=== PATIENT | female | born 1940 | race Caucasian/White ===

== ENCOUNTER 2016-08-11 19:16 | Observation (INO) | payer OTHER ==
--- NOTE | 2016-08-11 20:25 | RAD ---
Chest PA and lateral Indication: Pneumonia. Dyspnea. Comparison: June 27, 2015 radiograph Findings: No large pneumothorax seen. There is cardiomegaly, hiatal hernia and lung hyperinflation. Peribronchial thickening noted. No consolidation seen. Impression: Cardiomegaly and COPD change. Bronchitis may be present. No large pneumothorax seen. Reported By:
--- NOTE | 2016-08-11 20:34 | DR.GENAD ---
HPI - PCP Primary Care Physician: IDALIA - HPI Comment HPI Comment: She has been coughing for the past month and finished a round of levaquin two weeks ago with little improvement; she has been worsening over the past few days and has developed a temp; she feels bad all over and is tired all the time; her head hurts but she denies cp/palpitations/ear pain or sore throat. She continues to use her oxygen at night but has not been using her neb tx. - Complaint/Symptoms Chief Complaint:: FEVER ,SICK,COUGH - Source History Provided: Patient - Mode of Arrival Mode of Arrival: Ambulatory - Timing Onset of Chief Complaint: 08/04/16 PMH - PMH Past Medical History: Yes Past Medical History: Arthritis, Diabetes Past Medical History Comment: TIRSO, PULMONARY FIBROSIS Past Surgical History: Yes Surgical History: , Cholecystectomy, Hysterectomy, Ortho Surgery, Tonsillectomy - Family History History of Family Medical Conditions: Yes Family Medical History: Cancer - Social History Does patient currently use any type of tobacco product: No Have you used tobacco products in the last 12 months: No Type of Tobacco Use: None Does any household member use tobacco: No Alcohol Use: None Do you use any recreational Drugs:: No Lives With: Spouse Lives Where: Home - infectious screening In the last 2 months have you had wt loss of >10#?: NO Have you had fever, night sweats or hemotysis?: No Have you traveled outside the country in the last 6 months?: No Isolation: Standard ROS - Review of Systems Constitutional: Fever, Malaise, Weakness Eyes: No Symptoms Reported ENTM: Nose Congestion Respiratoy: See HPI Cardiovascular: No Symptoms Reported Gastrointestinal/Abdominal: No Symptoms Reported Neurological: No Symptoms Reported Musculoskeletal: Joint Pain PE - Vital Signs Vitals: Temperature 102.9 F Pulse Rate 90 Respiratory Rate 20 Blood Pressure [Right Arm] 183/75 Blood Pressure 104/56 O2 Sat by Pulse Oximetry 90 - General Limitations: No Limitations General Appearance: Alert (moderately ill appearing) - Head Head Exam: Normal Inspection - ENT ENT Exam: Mucous Membranes Dry - Neck Neck Exam: Normal Inspection, Full ROM - Chest Chest Inspection: Normal Inspection - Respiratory Respiratory Exam: Bilateral Wheezing, Left Rales, Lower Rales - Cardiovascular Cardiovascular Exam: Regular Rate, Normal Rhythm - Abdominal Exam Abdominal Exam: Normal Inspection - Neurologic Neurological Exam: Alert - Psychiatric Psychiatric Exam: Anxious ROR - Labs Reviewed Result Diagrams: 08/11/16 20:00 08/11/16 20:00 Laboratory: 08/11/16 20:26 Sputum - Expectorated Sputum - Final WBC 4.8 X10^3/uL (3.6-10.0) 08/11/16 20:00 RBC 3.76 X10^6/uL (3.5-5.4) 08/11/16 20:00 Hgb 11.3 g/dL (12.0-16.0) L 08/11/16 20:00 Hct 34.0 % (36.0-47.0) L 08/11/16 20:00 MCV 90.5 fL (80.0-100.0) 08/11/16 20:00 MCH 30.0 pg (27.0-34.0) 08/11/16 20:00 MCHC 33.1 g/dL (33.0-35.0) 08/11/16 20:00 RDW 14.8 % (11.6-16.5) 08/11/16 20:00 Plt Count 93 X10^3/uL (150.0-450.0) L 08/11/16 20:00 MPV 9.5 fL (7.4-11.0) 08/11/16 20:00 Neut % 74.6 % (42.0-75.0) 08/11/16 20:00 Lymph % 11.2 % (21.0-51.0) L 08/11/16 20:00 Delta % 12.8 % (0.0-13.0) 08/11/16 20:00 Eos % 0.9 % (0.9-2.9) 08/11/16 20:00 Baso % 0.5 % (0.2-1.0) 08/11/16 20:00 Neut # 3.6 x10^3/uL (2.2-4.8) 08/11/16 20:00 Lymph # 0.5 X10^3/uL (1.3-2.9) L 08/11/16 20:00 Delta # 0.6 x10^3/uL (0.3-0.8) 08/11/16 20:00 Eos # 0.0 x10^3/uL (0.0-0.2) 08/11/16 20:00 Baso # 0.0 X10^3/uL (0.0-0.1) 08/11/16 20:00 Absolute Nucleated RBC 0.1 /100WBC 08/11/16 20:00 Sodium 140 mmol/L (136-145) 08/11/16 20:00 Corrected Sodium 142 mmol/L (136-145) 08/11/16 20:00 Potassium 3.4 mmol/L (3.5-5.1) L 08/11/16 20:00 Chloride 105 mmol/L (98-107) 08/11/16 20:00 Carbon Dioxide 26.2 mmol/L (21-32) 08/11/16 20:00 BUN 19 mg/dL (7-18) H 08/11/16 20:00 Creatinine 0.95 mg/dL (0.55-1.02) 08/11/16 20:00 Est GFR (MDRD) Af Amer > 60 (>60) 08/11/16 20:00 Est GFR (MDRD) Non-Af > 60 (>60) 08/11/16 20:00 Glucose 201 mg/dL (65-99) H 08/11/16 20:00 Calcium 7.7 mg/dL (8.5-10.1) L 08/11/16 20:00 Corrected Calcium 8.7 mg/dL (8.5-10.1) 08/11/16 20:00 Total Bilirubin 0.40 mg/dL (0.2-1.0) 08/11/16 20:00 AST 23 Units/L (15-37) 08/11/16 20:00 ALT 15 Units/L (12-78) 08/11/16 20:00 Alkaline Phosphatase 87 Units/L (46-116) 08/11/16 20:00 Total Protein 6.5 g/dL (6.4-8.2) 08/11/16 20:00 Albumin 2.8 g/dL (3.4-5.0) L 08/11/16 20:00 Globulin 3.7 g/dL (2.5-4.5) 08/11/16 20:00 Albumin/Globulin Ratio 0.8 Ratio (1.1-2.1) L 08/11/16 20:00 - XRAY XRAY Interpreted by: Radiologist (bronchitis) - Diagnosis Discharge Problem: Pulmonary hypertension, Bronchitis, Hypokalemia - Discharge Plan Disposition: ADMITTED INPATIENT Condition: Stable - Follow ups/Referrals - Instructions
[2016-08-11 20:47] LABS: ALANINE AMINOTRANSFERASE 15 Units/L (12-78); ALBUMIN 2.8 g/dL (3.4-5.0); ALKALINE PHOSPHATASE 87 Units/L (46-116); ASPARTATE AMINO TRANSFERASE 23 Units/L (15-37); BLOOD UREA NITROGEN 19 mg/dL (7-18); CALCIUM 7.7 mg/dL (8.5-10.1); CARBON DIOXIDE 26.2 mmol/L (21-32); CHLORIDE 105 mmol/L (98-107); COR CA(FOR HYPOALB) 8.7 mg/dL (8.5-10.1); COR NA(FOR HYPERGLY) 142 mmol/L (136-145); CREATININE 0.95 mg/dL (0.55-1.02); GLUCOSE 201 mg/dL (65-99); SODIUM 140 mmol/L (136-145); TOTAL PROTEIN 6.5 g/dL (6.4-8.2); eGFR BLACK RACES > 60 (>60); eGFR NON BLACK RACES > 60 (>60)
[2016-08-11 20:55] LABS: BASOPHILS % (AUTO) 0.5 % (0.2-1.0); EOSINOPHILS % (AUTO) 0.9 % (0.9-2.9); HEMOGLOBIN 11.3 g/dL (12.0-16.0); LYMPHOCYTES # (AUTO) 0.5 X10^3/uL (1.3-2.9); LYMPHOCYTES % (AUTO) 11.2 % (21.0-51.0); MEAN CORPUSCULAR HGB CONC 33.1 g/dL (33.0-35.0); MEAN CORPUSCULAR VOLUME 90.5 fL (80.0-100.0); MEAN PLATELET VOLUME 9.5 fL (7.4-11.0); MONOCYTES # (AUTO) 0.6 x10^3/uL (0.3-0.8); MONOCYTES % (AUTO) 12.8 % (0.0-13.0); NEUTROPHILS # (AUTO) 3.6 x10^3/uL (2.2-4.8); NEUTROPHILS % (AUTO) 74.6 % (42.0-75.0); PLATELET COUNT 93 X10^3/uL (150.0-450.0); RED BLOOD COUNT 3.76 X10^6/uL (3.5-5.4); RED CELL DISTRIBUTION WIDTH 14.8 % (11.6-16.5); WHITE BLOOD COUNT 4.8 X10^3/uL (3.6-10.0)
[2016-08-11] MEDS ORDERED: DUONEB 0.5 MG/3 MG NEB ONE (21:09)
[2016-08-11] MEDS ORDERED: DUONEB 0.5 MG/3 MG ONE (21:47)
[2016-08-11] MEDS ORDERED: TYLENOL 325 MG TAB PO PRN (22:33)
[2016-08-12] MEDS: NS 1000 ML 1,000 ML IV SCH ×3 (00:57→19:25)
[2016-08-12] MEDS: ZITHROMAX INJ 500 MG VIAL 500 MG in NS 250 ML IV 250 ML IV SCH (01:00)
[2016-08-12 01:09] VITALS: BMI 25.6
[2016-08-12] MEDS ORDERED: NS 50 ML IV + SPIKE MINIBAG* 50 ML IV ONE (01:14)
[2016-08-12] MEDS ORDERED: NS 250 ML IV 250 ML IV ONE (01:14)
[2016-08-12] MEDS ORDERED: ROCEPHIN VIAL 1 GM ONE (01:14)
[2016-08-12] MEDS ORDERED: ZITHROMAX INJ 500 MG VIAL IV ONE (01:15)
[2016-08-12] MEDS: ROCEPHIN VIAL 1 GM 1 GM in NS 50 ML IV + SPIKE MINIBAG* 50 ML IV SCH ×2 (01:26→09:56)
[2016-08-12 05:25] LABS: ALANINE AMINOTRANSFERASE 17 Units/L (12-78); ALBUMIN 2.9 g/dL (3.4-5.0); ALKALINE PHOSPHATASE 88 Units/L (46-116); ASPARTATE AMINO TRANSFERASE 29 Units/L (15-37); BLOOD UREA NITROGEN 18 mg/dL (7-18); CALCIUM 8.2 mg/dL (8.5-10.1); CHLORIDE 107 mmol/L (98-107); COR CA(FOR HYPOALB) 9.1 mg/dL (8.5-10.1); COR NA(FOR HYPERGLY) 146 mmol/L (136-145); CREATININE 0.79 mg/dL (0.55-1.02); GLUCOSE 215 mg/dL (65-99); SODIUM 143 mmol/L (136-145); TOTAL PROTEIN 6.8 g/dL (6.4-8.2); eGFR BLACK RACES > 60 (>60); eGFR NON BLACK RACES > 60 (>60)
[2016-08-12 06:30] LABS: BASOPHILS % (AUTO) 0.3 % (0.2-1.0); EOSINOPHILS % (AUTO) 0.3 % (0.9-2.9); HEMOGLOBIN 11.9 g/dL (12.0-16.0); LYMPHOCYTES # (AUTO) 0.7 X10^3/uL (1.3-2.9); LYMPHOCYTES % (AUTO) 13.1 % (21.0-51.0); MEAN CORPUSCULAR HEMOGLOBIN 29.9 pg (27.0-34.0); MEAN CORPUSCULAR HGB CONC 33.1 g/dL (33.0-35.0); MEAN CORPUSCULAR VOLUME 90.3 fL (80.0-100.0); MEAN PLATELET VOLUME 9.3 fL (7.4-11.0); MONOCYTES # (AUTO) 0.7 x10^3/uL (0.3-0.8); MONOCYTES % (AUTO) 13.8 % (0.0-13.0); NEUTROPHILS # (AUTO) 3.9 x10^3/uL (2.2-4.8); NEUTROPHILS % (AUTO) 72.5 % (42.0-75.0); PLATELET COUNT 91 X10^3/uL (150.0-450.0); RED BLOOD COUNT 3.98 X10^6/uL (3.5-5.4); RED CELL DISTRIBUTION WIDTH 15.4 % (11.6-16.5); WHITE BLOOD COUNT 5.3 X10^3/uL (3.6-10.0)
[2016-08-12] MEDS: DUONEB 0.5 MG/3 MG NEB PRN ×2 (09:25→20:35)
[2016-08-12] MEDS: IMURAN PO SCH (09:55)
[2016-08-12] MEDS: MICRO K EXTEN CAP 10 MEQ PO SCH (09:57)
[2016-08-12] MEDS: PROTONIX TAB 40 MG PO SCH (09:58)
[2016-08-12] MEDS: DITROPAN TAB 5 MG PO SCH (09:58)
[2016-08-12] MEDS: TAMIFLU PO SCH ×2 (09:58→21:09)
[2016-08-12] MEDS: LYRICA CAP 150 MG PO SCH ×2 (09:58→21:09)
--- NOTE | 2016-08-12 16:40 | DR.H&P ---
H&P - History & Physical for Day of: H&P Date: 08/12/16 - Chief Complaint Chief Complaint: FEVER, COUGH, WEAKNESS - Allergies Allergies/Adverse Reactions: Allergies Allergy/AdvReac Type Severity Reaction Status Date / Time No Known Drug Allergy Allergy Verified 06/27/15 16:07 - History of Present Illness History of Present Illness: ER ADMISSION WITH COPD WITH AB AND FLU B +. WILL ADMIT FOR IV ATBX, RESP THERAPY, AND IV HYDRATION. WILL RESUME HOME MEDS - Past Medical History Past Medical History: Arthritis, Diabetes - Past Surgical History Surgical History: , Cholecystectomy, Hysterectomy, Ortho Surgery, Tonsillectomy - Family History Family Medical History: Cancer - Social History Does patient currently use any type of tobacco product: No Have you used tobacco products in the last 12 months: No Type of Tobacco Use: None Does any household member use tobacco: No Alcohol Use: None Drug Use: None - Medications Home Medications: Azathioprine [Imuran] 50 mg PO DAILY 08/11/16 [History Confirmed 08/11/16] - Review of Systems Constitutional: Fever, Chills, Weakness Eyes: No Symptoms Reported ENT: No Symptoms Reported Respiratory: Cough, Shortness of Breath, Sputum, Wheezing Cardiovascular: No Symptoms Reported Gastrointestinal: Nausea Genitourinary: No Symptoms Reported Musculoskeletal: No Symptoms Reported Skin: No Symptoms Reported Neurological: No Symptoms Reported - Physical Exam Vital Signs: Temperature 98 F Pulse Rate [Left Radial] 74 Pulse Rate 85 Respiratory Rate 18 Blood Pressure [Left Arm] 110/56 Blood Pressure [Right Arm] 123/62 O2 Sat by Pulse Oximetry 95 Oriented: Normal Eyes: Normal Ear: Normal Nose: Normal Throat: Red, Dry Respiratory: Wheezes Throughout Cardiovascular: Normal : Normal Auscultation: Bowel Sounds: Normal Palpation: Normal Tenderness: Normal Skin: Normal Psychiatric: Anxiety Speech Pattern: Clear, Appropriate - Assessment/Plan (1) Bronchitis Status: Acute Plan: ADMIT, IV ATBX THERAPY, IV HYDRATION. RESP THERAPY, REPEAT AM LABS,. RESUME HOME MEDS, PAIN AND NAUSEA CONTROL (2) Hypokalemia Status: Acute (3) Influenza Status: Acute Plan: FEVER CONTROL, RESP THERAPY. IV HYDRATION
[2016-08-12] MEDS ORDERED: SNACK - Diabetic Appropriate PO SCH (20:00)
[2016-08-12] MEDS ORDERED: LIPITOR TAB 10 MG PO SCH (21:00)
[2016-08-12] MEDS ORDERED: LANTUS SC SCH (21:00)
[2016-08-13] MEDS: ZITHROMAX INJ 500 MG VIAL 500 MG in NS 250 ML IV 250 ML IV SCH (00:18)
[2016-08-13] MEDS: NS 1000 ML 1,000 ML IV SCH (04:01)
[2016-08-13 05:31] LABS: ALANINE AMINOTRANSFERASE 16 Units/L (12-78); ALBUMIN 2.3 g/dL (3.4-5.0); ALKALINE PHOSPHATASE 76 Units/L (46-116); ASPARTATE AMINO TRANSFERASE 18 Units/L (15-37); BLOOD UREA NITROGEN 8 mg/dL (7-18); CALCIUM 7.7 mg/dL (8.5-10.1); CHLORIDE 111 mmol/L (98-107); COR CA(FOR HYPOALB) 9.1 mg/dL (8.5-10.1); COR NA(FOR HYPERGLY) 146 mmol/L (136-145); CREATININE 0.54 mg/dL (0.55-1.02); GLUCOSE 221 mg/dL (65-99); SODIUM 143 mmol/L (136-145); TOTAL PROTEIN 5.9 g/dL (6.4-8.2); eGFR BLACK RACES > 60 (>60); eGFR NON BLACK RACES > 60 (>60)
[2016-08-13 05:37] LABS: BASOPHILS % (AUTO) 0.4 % (0.2-1.0); EOSINOPHILS # (AUTO) 0.1 x10^3/uL (0.0-0.2); EOSINOPHILS % (AUTO) 1.4 % (0.9-2.9); HEMATOCRIT 32.7 % (36.0-47.0); HEMOGLOBIN 10.6 g/dL (12.0-16.0); LYMPHOCYTES # (AUTO) 0.9 X10^3/uL (1.3-2.9); LYMPHOCYTES % (AUTO) 22.8 % (21.0-51.0); MEAN CORPUSCULAR HEMOGLOBIN 29.6 pg (27.0-34.0); MEAN CORPUSCULAR HGB CONC 32.5 g/dL (33.0-35.0); MEAN CORPUSCULAR VOLUME 91.1 fL (80.0-100.0); MEAN PLATELET VOLUME 9.3 fL (7.4-11.0); MONOCYTES # (AUTO) 0.5 x10^3/uL (0.3-0.8); NEUTROPHILS # (AUTO) 2.5 x10^3/uL (2.2-4.8); NEUTROPHILS % (AUTO) 62.4 % (42.0-75.0); PLATELET COUNT 100 X10^3/uL (150.0-450.0); RED BLOOD COUNT 3.59 X10^6/uL (3.5-5.4); RED CELL DISTRIBUTION WIDTH 14.7 % (11.6-16.5); WHITE BLOOD COUNT 4.1 X10^3/uL (3.6-10.0)
--- NOTE | 2016-08-13 08:18 | PCM.PROG ---
Progress Note - Progress Note for Day of Date: 08/12/16 - Subjective Subjective: low grade fever, cough and wheezing - Past Medical Family Social History Past Med/Fam/Surg Hx: No changes since H&P Allergies: Allergies No Known Drug Allergy Allergy (Verified 06/27/15 16:07) - Review of Systems ROS: No change since H&P - Vital Signs and I&O's Vital Signs: Temperature 97.8 F Pulse Rate [Left Radial] 73 Pulse Rate 80 Respiratory Rate 20 Blood Pressure [Left Arm] 111/54 Blood Pressure [Right Arm] 122/58 O2 Sat by Pulse Oximetry 92 Intake and Output: Intake & Output 08/10/16 08/11/16 08/12/16 08/13/16 11:59 11:59 11:59 11:59 Intake Total 0 1680 Balance 0 1680 - Physical Exam Oriented: Normal Eyes: Normal Ear: Normal Nose: Normal Throat: Red, Dry Respiratory: Wheezes Cardiovascular: Normal : Normal Auscultation: Bowel Sounds: Normal Tenderness: Normal Skin: Normal Psychiatric: Anxiety Speech Pattern: Clear, Appropriate - Laboratory and Diagnostics Result Diagrams: 08/13/16 04:05 08/13/16 04:05 Labs: Laboratory WBC 4.1 X10^3/uL (3.6-10.0) 08/13/16 04:05 RBC 3.59 X10^6/uL (3.5-5.4) 08/13/16 04:05 Hgb 10.6 g/dL (12.0-16.0) L 08/13/16 04:05 Hct 32.7 % (36.0-47.0) L 08/13/16 04:05 MCV 91.1 fL (80.0-100.0) 08/13/16 04:05 MCH 29.6 pg (27.0-34.0) 08/13/16 04:05 MCHC 32.5 g/dL (33.0-35.0) L 08/13/16 04:05 RDW 14.7 % (11.6-16.5) 08/13/16 04:05 Plt Count 100 X10^3/uL (150.0-450.0) L 08/13/16 04:05 MPV 9.3 fL (7.4-11.0) 08/13/16 04:05 Neut % 62.4 % (42.0-75.0) 08/13/16 04:05 Lymph % 22.8 % (21.0-51.0) 08/13/16 04:05 [place] % 13.0 % (0.0-13.0) 08/13/16 04:05 Eos % 1.4 % (0.9-2.9) 08/13/16 04:05 Baso % 0.4 % (0.2-1.0) 08/13/16 04:05 Neut # 2.5 x10^3/uL (2.2-4.8) 08/13/16 04:05 Lymph # 0.9 X10^3/uL (1.3-2.9) L 08/13/16 04:05 [place] # 0.5 x10^3/uL (0.3-0.8) 08/13/16 04:05 Eos # 0.1 x10^3/uL (0.0-0.2) 08/13/16 04:05 Baso # 0.0 X10^3/uL (0.0-0.1) 08/13/16 04:05 Absolute Nucleated RBC 0.1 /100WBC 08/13/16 04:05 Sodium 143 mmol/L (136-145) 08/13/16 04:05 Corrected Sodium 146 mmol/L (136-145) H 08/13/16 04:05 Potassium 3.6 mmol/L (3.5-5.1) 08/13/16 04:05 Chloride 111 mmol/L (98-107) H 08/13/16 04:05 Carbon Dioxide 26.0 mmol/L (21-32) 08/13/16 04:05 BUN 8 mg/dL (7-18) 08/13/16 04:05 Creatinine 0.54 mg/dL (0.55-1.02) L 08/13/16 04:05 Est GFR (MDRD) Af Amer > 60 (>60) 08/13/16 04:05 Est GFR (MDRD) Non-Af > 60 (>60) 08/13/16 04:05 Glucose 221 mg/dL (65-99) H 08/13/16 04:05 Calcium 7.7 mg/dL (8.5-10.1) L 08/13/16 04:05 Corrected Calcium 9.1 mg/dL (8.5-10.1) 08/13/16 04:05 Total Bilirubin 0.30 mg/dL (0.2-1.0) 08/13/16 04:05 AST 18 Units/L (15-37) 08/13/16 04:05 ALT 16 Units/L (12-78) 08/13/16 04:05 Alkaline Phosphatase 76 Units/L (46-116) 08/13/16 04:05 Total Protein 5.9 g/dL (6.4-8.2) L 08/13/16 04:05 Albumin 2.3 g/dL (3.4-5.0) L 08/13/16 04:05 Globulin 3.6 g/dL (2.5-4.5) 08/13/16 04:05 Albumin/Globulin Ratio 0.6 Ratio (1.1-2.1) L 08/13/16 04:05 Influenza A (H1N1) PCR Not detected (NOT DETECT) 08/11/16 21:45 Influenza Type A (PCR) Negative (NEGATIVE) 08/11/16 21:45 Influenza Type B (PCR) Positive (NEGATIVE) A 08/11/16 21:45 - Plan (1) Bronchitis Status: Acute Plan: CONTINUE IV ATBX THERAPY, IV HYDRATION. RESP THERAPY, REPEAT AM LABS,. RESUME HOME MEDS, PAIN AND NAUSEA CONTROL (2) Hypokalemia Status: Acute (3) Influenza Status: Acute Plan: FEVER CONTROL, RESP THERAPY. IV HYDRATION
--- NOTE | 2016-08-13 08:58 | RAD ---
HISTORY: Portable AP chess Study: Portable AP chest Comparison: 08/11/2016 Findings: The heart is normal. The pulmonary vessels are normal . There is asymmetric elevation the right onesimo diaphragm which is more prominent. There are mild chronic interstitial changes throughout with linea r parenchymal scarring scattered along the right lung base which is unchanged. There are postop johnson ges in both shoulders which are unchanged . There is minimal blunting of the right costophrenic angl e. IMPRESSION: Diffuse chronic lung changes with a questionable tiny right pleural effusion which is more prominent . Reported By:
[2016-08-13] MEDS: DUONEB 0.5 MG/3 MG NEB PRN ×2 (09:37→12:34)
[2016-08-13] MEDS: MICRO K EXTEN CAP 10 MEQ PO SCH (10:00)
[2016-08-13] MEDS: DITROPAN TAB 5 MG PO SCH (10:00)
[2016-08-13] MEDS: TAMIFLU PO SCH (10:00)
[2016-08-13] MEDS: PROTONIX TAB 40 MG PO SCH (10:00)
[2016-08-13] MEDS: LYRICA CAP 150 MG PO SCH (10:00)
[2016-08-13] MEDS: ROCEPHIN VIAL 1 GM 1 GM in NS 50 ML IV + SPIKE MINIBAG* 50 ML IV SCH (10:00)
[2016-08-13] MEDS: IMURAN PO SCH (10:01)
[2016-08-13 16:01] VITALS: BP 140/65
--- NOTE | 2016-08-13 17:46 | PCM.DCPLAN ---
Discharge Summary - Admission Date Date of Admission: 08/11/16 - Discharge Date Discharge Date: 08/13/16 - Admission Diagnoses (1) Bronchitis Status: Acute (2) Hypokalemia Status: Acute (3) Influenza Status: Acute - Discharge Diagnoses Discharge Diagnosis: same as admission - Discharge Medications Discharge Medications: Azathioprine [Imuran] 50 mg PO BID 08/11/16 [History] Budesonide (Inhalation) [Budesonide] 1 mg IN BID #60 each 08/13/16 [Rx] Levofloxacin [Levaquin Tab 500 mg] 500 mg PO Q24H #7 tab 08/13/16 [Rx] Oseltamivir Phosphate [TAMIFLU 75 MG CAP (ADULT) *] 75 mg PO BID #10 cap [Rx] - Hospital Course Vital Signs: Temperature 97.5 F Pulse Rate [Left Radial] 82 Pulse Rate 80 Respiratory Rate 20 Blood Pressure [Left Arm] 140/65 Blood Pressure [Right Arm] 122/58 O2 Sat by Pulse Oximetry 94 Latest Lab Results: Laboratory Last Values WBC 4.1 X10^3/uL (3.6-10.0) 08/13/16 04:05 RBC 3.59 X10^6/uL (3.5-5.4) 08/13/16 04:05 Hgb 10.6 g/dL (12.0-16.0) L 08/13/16 04:05 Hct 32.7 % (36.0-47.0) L 08/13/16 04:05 MCV 91.1 fL (80.0-100.0) 08/13/16 04:05 MCH 29.6 pg (27.0-34.0) 08/13/16 04:05 MCHC 32.5 g/dL (33.0-35.0) L 08/13/16 04:05 RDW 14.7 % (11.6-16.5) 08/13/16 04:05 Plt Count 100 X10^3/uL (150.0-450.0) L 08/13/16 04:05 MPV 9.3 fL (7.4-11.0) 08/13/16 04:05 Neut % 62.4 % (42.0-75.0) 08/13/16 04:05 Lymph % 22.8 % (21.0-51.0) 08/13/16 04:05 [place] % 13.0 % (0.0-13.0) 08/13/16 04:05 Eos % 1.4 % (0.9-2.9) 08/13/16 04:05 Baso % 0.4 % (0.2-1.0) 08/13/16 04:05 Neut # 2.5 x10^3/uL (2.2-4.8) 08/13/16 04:05 Lymph # 0.9 X10^3/uL (1.3-2.9) L 08/13/16 04:05 [place] # 0.5 x10^3/uL (0.3-0.8) 08/13/16 04:05 Eos # 0.1 x10^3/uL (0.0-0.2) 08/13/16 04:05 Baso # 0.0 X10^3/uL (0.0-0.1) 08/13/16 04:05 Absolute Nucleated RBC 0.1 /100WBC 08/13/16 04:05 Sodium 143 mmol/L (136-145) 08/13/16 04:05 Corrected Sodium 146 mmol/L (136-145) H 08/13/16 04:05 Potassium 3.6 mmol/L (3.5-5.1) 08/13/16 04:05 Chloride 111 mmol/L (98-107) H 08/13/16 04:05 Carbon Dioxide 26.0 mmol/L (21-32) 08/13/16 04:05 BUN 8 mg/dL (7-18) 08/13/16 04:05 Creatinine 0.54 mg/dL (0.55-1.02) L 08/13/16 04:05 Est GFR (MDRD) Af Amer > 60 (>60) 08/13/16 04:05 Est GFR (MDRD) Non-Af > 60 (>60) 08/13/16 04:05 Glucose 221 mg/dL (65-99) H 08/13/16 04:05 Calcium 7.7 mg/dL (8.5-10.1) L 08/13/16 04:05 Corrected Calcium 9.1 mg/dL (8.5-10.1) 08/13/16 04:05 Total Bilirubin 0.30 mg/dL (0.2-1.0) 08/13/16 04:05 AST 18 Units/L (15-37) 08/13/16 04:05 ALT 16 Units/L (12-78) 08/13/16 04:05 Alkaline Phosphatase 76 Units/L (46-116) 08/13/16 04:05 Total Protein 5.9 g/dL (6.4-8.2) L 08/13/16 04:05 Albumin 2.3 g/dL (3.4-5.0) L 08/13/16 04:05 Globulin 3.6 g/dL (2.5-4.5) 08/13/16 04:05 Albumin/Globulin Ratio 0.6 Ratio (1.1-2.1) L 08/13/16 04:05 Influenza A (H1N1) PCR Not detected (NOT DETECT) 08/11/16 21:45 Influenza Type A (PCR) Negative (NEGATIVE) 08/11/16 21:45 Influenza Type B (PCR) Positive (NEGATIVE) A 08/11/16 21:45 Hospital Course: PT WAS 75 WF ADMITTED FROM ER WITH COPD WITH AB, INFLENZA VIRUS. PT RECEIVED IV ATBX AND RESP THERAPY WELL TAMIFLU PO. PT'S CXR STABLE, W/O PNEUMONIA. PT FEELS MUCH IMPROVED. PT D/C HOME ON LEVAQUIN PO, PULMICORT NEB, AND TAMIFLU PT TO RESUME HOME MEDS AND FOLLOW UP WITH DR GOLDSTEIN IN ONE WEEK. PT TO SEE ANNALISE GLAZIER STRUCTURAL GLASS SCHEDULED PT INSTRUCTED TO RTO OR ER PRN CHANGE OR WORSENED CONDITION - Discharge Plan Disposition: 01 HOME, SELF-CARE Condition: Stable Prescriptions: Budesonide (Inhalation) [Budesonide] 1 mg IN BID #60 each Levofloxacin [Levaquin Tab 500 mg] 500 mg PO Q24H #7 tab Oseltamivir Phosphate [TAMIFLU 75 MG CAP (ADULT) *] 75 mg PO BID #10 cap - Follow ups/Referrals Follow ups/Referrals: MICHELLE WERNER [Nurse Practitioner] - 08/20/16 3:00 pm - Instructions Instructions: Influenza, Adult, [id number], Budesonide inhalation solution, Oseltamivir capsules, Levofloxacin tablets, Acute Bronchitis Additional Instructions: increase po fluids rest, resume home meds tamiflu bid x levaquin 500mg daily x 7 days, pulmicort bid pt to follow up with dr goldstein in one week pt to see clinical research director as scheduled jet nebs qid Forms: Patient Portal
[2016-08-14 10:51] LABS: BAND NEUTROPHILS % 2 % (0-10)
[2016-08-14 10:52] LABS: PLATELET MORPHOLOGY COMMENT NORMAL (NORMAL)
== END 2016-08-13 16:14 | disposition home or self-care (01) ==
LOC: ER 19:16 → MED/SURG 22:48
PROVIDERS: ADMIT Internal Medicine; ATTEND Internal Medicine
DX: J20.8 Acute bronchitis due to other specified organisms (principal); I27.2 Other secondary pulmonary hypertension; E87.6 Hypokalemia; D64.89 Other specified anemias; M13.89 Other specified arthritis, multiple sites; J44.0 Chronic obstructive pulmonary disease with (acute) lower respiratory infection; J10.1 Influenza due to other identified influenza virus with other respiratory manifestations; R26.89 Other abnormalities of gait and mobility
CPT/HCPCS: 36415; 71010; 71020; 80053; 84132; 85025; 87040; 87070; 87205; 87502; 87503; 94640; 94760; 96365; 97535; 99284; A4216; A4222; G8978; G8979; G8987; G8988; G9035; G0378; J0456; J0696; J1815; J7620

== ENCOUNTER → 2016-08-28 | Outpatient (CLI) | payer OTHER ==
[2016-08-13 16:01] VITALS: BP 140/65
--- NOTE | 2016-08-28 09:24 | US ---
HISTORY: Splenomegaly, left upper quadrant pain Study: Abdominal ultrasound, complete Comparison: None Technique: Multiple grayscale sonographic images were obtained. Findings: The liver was normal in size and configuration without cyst, mass, or biliary ductal dilatation. The spleen was normal in size measuring 12 x 5.8 x 5.5 centimeters. The pancreas was obscured by overly ing bowel gas. The gallbladder is surgically absent. Common duct measured 5.5 millimeters. The abdom inal aorta and inferior vena cava are normal. The right kidney measured 10.8 x 5.8 x 5.8 centimeters . Left kidney measured 10.2 x 4 centimeters. Bilateral benign renal cysts are present. No solid mass es, hydronephrosis, stones, or perinephric fluid collections are identified. IMPRESSION: No significant abnormality identified Reported By:
== END ==
LOC: RAD 08:25
PROVIDERS: ATTEND Nurse Practitioner Family
DX: R16.1 Splenomegaly, not elsewhere classified (principal)
CPT/HCPCS: 76700

== ENCOUNTER 2017-03-14 19:40 | Emergency (ER) | payer OTHER ==
[2017-03-14 20:02] VITALS: BMI 24.6
[2017-03-14] MEDS ORDERED: TORADOL 60 MG VIAL IM ONE (20:09)
[2017-03-14] MEDS ORDERED: TORADOL 60 MG VIAL ONE (20:10)
--- NOTE | 2017-03-14 21:02 | CT ---
HISTORY: Fall, right-sided head trauma Study: CT brain without contrast Comparison: 06/27/2015 Technique: Multiple axial images of the brain were obtained from the skull base to the vertex without administra tion of IV contrast. Dose reduction techniques including Automated Exposure Control (AEC) and adjust ment of mA and kV were utilized. Findings: There is atrophy and nonspecific white matter hypoattenuation likely related to microvascular ischemi c changes. No evidence of acute hemorrhage, midline shift, mass effect or abnormal extra-axial fluid collection. The ventricular system is symmetric and nondilated. There is a right frontotemporal sc alp hematoma measuring approximately 5 x 4 x 1.4 cm. No calvarial fracture identified. There is chron ic maxillary and sphenoid sinus disease again noted. IMPRESSION: 1. Right frontotemporal scalp hematoma. No fracture or acute intracranial abnormality identified. 2. Chronic sinus disease. Reported By:
--- NOTE | 2017-03-14 21:08 | CT ---
HISTORY: Pain after fall Study: CT cervical spine without contrast Comparison: 06/27/2015 Technique: Multiple axial images of the cervical spine were obtained from the skull base to the thora cic inlet without administration of IV contrast. Sagittal and coronal reformats were performed and r eviewed. Dose reduction techniques including Automated Exposure Control (AEC) and adjustment of mA an d kV were utilized. Findings: Normal cervical alignment. Vertebral body heights are preserved. There is chronic multilevel spondylo sis and facet arthropathy in the cervical spine. The posterior elements are intact. No evidence of a cute fracture or dislocation. Previous odontoid fracture has healed. The occipital condyles are intac t. The visualized prevertebral and paraspinal soft tissues appear normal. The visualized lung apices are clear. IMPRESSION: 1. No acute osseous abnormality of the cervical spine. Reported By:
--- NOTE | 2017-03-14 21:10 | CT ---
CT right shoulder without contrast Indication: Right shoulder pain after fall Technique: 2 mm axial images of the right shoulder without IV contrast administration. Coronal and sa gittal reformatted images were also provided. Findings: There is a mildly displaced mid right clavicle fracture. The AC joint demonstrates moderate osteoarthrosis without malalignment. There is linear lucency within the 8 neck with extension of lorna ency to the inferior margin of the glenoid articular surface with a minimally displaced fracture note d on image 44, series 3. Several osteochondral bodies, fracture fragments are noted within the inferi or right glenohumeral joint for example on axial image 50. There is no definite hardware loosening or failure identified within the right humeral head prosthesis or proximal right humerus. Age-indeterminate nondisplaced fractures of the right anterior 2nd, 3rd, 4th and 5th ribs are noted. Impression: 1.Minimally displaced fracture of the mid right clavicle. 2. Linear lucency and cortical regularity involving the glenoid neck with extension of lucency to the inferior glenoid articular surface consistent with fracture, this appears to be acute. There is a mi nimally displaced fracture with cortical offset of the inferior glenoid along with several osteochond ral body/fracture fragments within the inferior glenohumeral joint. 3. No definite fracture within the proximal humerus or hardware complication within the humeral head prosthesis. 4. Nondisplaced, age indeterminate right anterior 2nd through 5th rib fractures. Reported By:
--- NOTE | 2017-03-14 21:27 | DR.GENAD ---
HPI - PCP Primary Care Physician: Queta Santiago - Complaint/Symptoms Chief Complaint Doctors Comments: Patient states she was going to store and tripped over the cement divider in the parking lock and fell and hit her right shoulder and the right side of her head about 2-3 hours ago. States she had pain 10 of 10 initially with pain in her right shoulder, head and neck. Patient denies LOC, nausea, vomiting or blurred vision. States she has had surgery on her right shoulder before and she is a patient of Dr. Schroeder. she denies chest pain, SOB, cold, cough fever or chills. States her right shoulder was done by Dr. Mayberry in [place], [place] and she will make an appointment for followup with him. Chief Complaint:: Fell and hit right arm, right side of head and right shoulder - Nurses notes reviewed Nurses Notes Review: Yes - Source History Provided: Patient, Significant Other - Mode of Arrival Mode of Arrival: EMS - Timing Onset of Chief Complaint: 03/14/17 Came on: Suddenly - Duration Duration: Constant How lon Duration: Hours - Location Location: right shoulder - Severity Severity: Severe - Modifying Factors Worsens:: movement Improves:: nothing PMH - PMH Past Medical History: Yes Past Medical History: Diabetes Past Medical History Comment: Chron's Disease Past Surgical History: Yes Surgical History: Cholecystectomy, Hysterectomy, Ortho Surgery Past Surgical History Comment: Bilateral Shoulder replacement, Knee replacement - Family History History of Family Medical Conditions: Yes Family Medical History: Cancer - Social History Does patient currently use any type of tobacco product: No Have you used tobacco products in the last 12 months: No Type of Tobacco Use: None Does any household member use tobacco: No Alcohol Use: None Do you use any recreational Drugs:: Yes Lives With: Spouse Lives Where: Home - infectious screening In the last 2 months have you had wt loss of >10#?: NO Have you had fever, night sweats or hemotysis?: No Have you traveled outside the country in the last 6 months?: No Isolation: Standard ROS - Review of Systems Constitutional: No Symptoms Reported. negative: See HPI, Chills, Diaphoresis, Fever, Malaise, Weakness, Irritable, Fatigue, Loss of Appetite, Other Eyes: No Symptoms Reported. negative: See HPI, Eye Pain, Blurred Vision, Tearing, Discharge, Photophobia, Diplopia, Other ENTM: No Symptoms Reported Respiratoy: No Symptoms Reported. negative: See HPI, Productive Cough, Non- Productive Cough, Moist Cough, Dry Cough, Hacking Cough, Barking Cough, Brassy Cough, Orthopnea, Short of Breath, Stridor, Wheezing, Hemoptysis, Other Cardiovascular: No Symptoms Reported. negative: See HPI, Chest Pain, Edema, Palpitations, Syncope, Cyanosis, Skin Mottling, Other Gastrointestinal/Abdominal: No Symptoms Reported. negative: See HPI, Abdominal Pain, Constipation, Diarrhea, Nausea, Vomiting, Food Intolerance, Other Genitourinary: No Symptoms Reported Neurological: No Symptoms Reported, Headache Musculoskeletal: No Symptoms Reported, Right, Neck, Shoulder Integumentary: No Symptoms Reported, Bruises (right head) Hematologic/Lymphatic: No Symptoms Reported Endocrine: No Symptoms Reported Psychiatric: No Symptoms Reported. negative: See HPI, Anxiety, Depression, Hallucinations, Excessive crying, Suicidal, Other PE - Vital Signs Vitals: Pulse Rate 80 Respiratory Rate 18 Blood Pressure [Left Arm] 140/65 Blood Pressure [Right Arm] 122/58 Blood Pressure 171/93 O2 Sat by Pulse Oximetry 96 - General Limitations: No Limitations General Appearance: Alert, In Distress (moderate) - Head Head Exam: Normal Inspection, Normocephalic. negative: Atraumatic (4-5 cm hematoma right frontal scalp) - Eyes Eye exam: Normal Appearance, PERRL, EOMI. negative: Scleral Icterus, Conjunctival Injection, Nystagmus, Miosis, Mydrasis, Periorbital Swelling, Periorbital Tenderness, Other - ENT ENT Exam: Normal Exam, Normal Oropharynx, Normal External Ear Exam, Mucous Membranes Moist, TM's Normal Bilaterally TM/Canal Exam: Bilateral Normal Nose Exam: Normal Nose Exam Mouth Exam: Normal Inspection Throat Exam: Normal Inspection - Neck Neck Exam: Normal Inspection, Trachea Midline. negative: Full ROM (c-collar in place) - Chest Chest Inspection: Normal Inspection, Symmetric Chest Wall Rise, Tenderness ( right anterior chest and right shoulder) - Respiratory Respiratory Exam: Normal Lung Sounds Bilat Respiratory Exam: Bilateral Clear to Auscultation - Cardiovascular Cardiovascular Exam: Regular Rate, Normal Rhythm, Normal Heart Sounds - Abdominal Exam Abdominal Exam: Normal Inspection, Normal Bowel Sounds, Soft Abdominal Tenderness: negative: RUQ, RLQ, LUQ, LLQ, Epigastrium, Suprapubic, Diffuse, Mild, Moderate, Severe, Other - Extremities Extremities Exam: Normal Inspection, Full ROM, Tenderness (right shoulder), Normal Capillary Refill - Back Back Exam: Normal Inspection, Full ROM - Neurologic Neurological Exam: Alert, Oriented X3, CN II-XII Intact, Reflexes Normal. negative: Normal Gait (gait not tested) - Psychiatric Psychiatric Exam: Normal Affect, Normal Mood - Skin Skin Exam: Warm, Dry, Intact, Normal Color Course - Reevaluation 1st: Improved - Consultation Called: :56 Call Returned: :56 (Dr. Shannon called and x-rays reviewed recommended followup with Dr. Mayberry who did her original shoulder surgery but will see her in the office to facilitate followup.) ROR - Labs Reviewed Laboratory Results Reviewed?: Yes (all x-ray results reviewed and discussed with family and patient.) - Other Results Comments: CT right shoulder: Displaced fracture mid right clavicle. Inferior glenoid articular surface fracture. Nondisplace indeterminate right anterior 2nd through 5th rib fractures. CT head: Right frontotemporal scalp hematoma. - XRAY XRAY Interpreted by: Radiologist (CT head: Rifht frontoteemporal scalp hematoma. No fracture on intracranial abnormality. Chronic sinusit.) XRAY Findings: CT right shoulder: Minimally displaced fracature inferior glenoid along wit - Diagnosis Discharge Problem: Right mid clavicle fracture, Fracture inferior glenoid articular surf, Multiple right rib fractures 2-5, old, Right frontotemporal scalp hematoma Fall from slip, trip, or stumble Qualifiers: Encounter type: initial encounter Qualified Code(s): W01.0XXA - Fall on same level from slipping, tripping and stumbling without subsequent striking against object, initial encounter - Discharge Plan Disposition: HOME, SELF-CARE Condition: Stable Prescriptions: Hydrocodone-Acet 7.5 mg/325 mg [[place] 7.5/325 mg Tab] 1 tab PO Q6H PRN #28 tab PRN Reason: Pain - Follow ups/Referrals Follow ups/Referrals: [facility],None [Primary Care Provider] - 3 days - Instructions Instructions: Fall Prevention in the Home, [id number], Clavicle Fracture ( Shaft) With Rehab-SportsMed, Shoulder Fracture, Hematoma, Head Injury, Adult, [id number], Rib Fracture
--- NOTE | 2017-03-14 22:09 | RAD ---
HISTORY: Fall, pain Study: Two views right shoulder, two views right clavicle Comparison: Chest radiograph 08/13/2016 Findings: There is a right shoulder arthroplasty in place without perihardware lucency or malalignment. There i s a minimally displaced transverse fracture of the right midclavicle. There are chronic right posteri or rib fractures. Nonspecific interstitial changes are seen in the lungs that appear unchanged from p rior study. IMPRESSION: 1. Fracture of the mid right clavicle. Reported By:
[2017-03-14 22:15] VITALS: BP 143/65
== END 2017-03-14 22:25 | disposition home or self-care (01) ==
LOC: ER 20:06
DX: S42.001A Fracture of unspecified part of right clavicle, initial encounter for closed fracture (principal); S42.141A Displaced fracture of glenoid cavity of scapula, right shoulder, initial encounter for closed fracture; S22.41XA Multiple fractures of ribs, right side, initial encounter for closed fracture; S00.83XA Contusion of other part of head, initial encounter; W01.0XXA Fall on same level from slipping, tripping and stumbling without subsequent striking against object, initial encounter; Y92.481 Parking lot as the place of occurrence of the external cause
CPT/HCPCS: 70450; 72125; 73000; 73030; 73200; 96372; 99283; J1885

== ENCOUNTER → 2017-06-10 | Outpatient (CLI) | payer OTHER ==
[~2017-06-10] MED LIST: NS 100 ML IV 100 ML IV ONE
[2017-06-10 08:24] LABS: CREATININE 0.57 mg/dL (0.55-1.02)
--- NOTE | 2017-06-10 10:18 | CT ---
CT NECK WITH IV CONTRAST CLINICAL INDICATION: Palpable visual mass on neck anterior midline just distal to hyoid. TECHNIQUE: Multiple-row detector helical CT examination of the neck with IV contrast per standard de partmental protocol.Dose reduction techniques including Automated Exposure Control (AEC) and adjustme nt of mA and kV were utlized. COMPARISON: CT cervical spine 06/27/2015 FINDINGS: The aerodigestive structures are within normal limits. Specifically, the nasal cavity, nasopharynx, oral cavity, oropharynx, hypopharynx, larynx, and visualized trachea and esophagus demonstrate no mas ses or abnormal enhancement. No pathologically enlarged, necrotic, or otherwise abnormal lymph nodes. The parotid and submandibular glands appear within normal limits. 1.8 x 1.3 cm cyst in the thyroid is thmus. Evaluation of the visualized portions of brain parenchyma and orbits demonstrates no abnormality. Ext ensive pansinus opacity which is similar to prior although it has worsened mildly. The tympanomastoid cavities are unopacified. There is normal intravascular enhancement. Emphysema and fibrosis of the lung apices. The visualized osseous structures are within normal limits . Multiple prominent lymph nodes of the visualized portion of the mediastinum. For example a prevascu lar lymph node measuring 2 cm on series 3, image 132 and precarinal lymph node measuring 1.4 x 1.0 cm on series 3, image 131 Following administration of intravenous contrast material, there is no abnormal enhancement. IMPRESSION: 1. Cyst in the thyroid isthmus. This would be better evaluated with ultrasound. 2. Pansinus disease. Correlate with symptoms. 3. Shotty mediastinal lymph nodes. Correlate with chronic inflammatory or infectious history. Reported By:
== END ==
LOC: RAD 07:43
DX: R22.1 Localized swelling, mass and lump, neck (principal)
CPT/HCPCS: 36415; 70491; 82565; 84520; A4222

== ENCOUNTER → 2017-07-23 | Outpatient (CLI) | payer OTHER ==
[2017-07-23 15:33] LABS: BASOPHILS # (AUTO) 0.1 X10^3/uL (0.0-0.1); BASOPHILS % (AUTO) 0.9 % (0.2-1.0); EOSINOPHILS # (AUTO) 0.2 x10^3/uL (0.0-0.2); EOSINOPHILS % (AUTO) 3.3 % (0.9-2.9); HEMATOCRIT 36.1 % (36.0-47.0); HEMOGLOBIN 12.2 g/dL (12.0-16.0); LYMPHOCYTES # (AUTO) 1.2 X10^3/uL (1.3-2.9); MEAN CORPUSCULAR HEMOGLOBIN 31.7 pg (27.0-34.0); MEAN CORPUSCULAR HGB CONC 33.9 g/dL (33.0-35.0); MEAN CORPUSCULAR VOLUME 93.6 fL (80.0-100.0); MEAN PLATELET VOLUME 7.8 fL (7.4-11.0); MONOCYTES # (AUTO) 0.5 x10^3/uL (0.3-0.8); MONOCYTES % (AUTO) 7.8 % (0.0-13.0); NEUTROPHILS # (AUTO) 4.9 x10^3/uL (2.2-4.8); PLATELET COUNT 224 X10^3/uL (150.0-450.0); RED BLOOD COUNT 3.86 X10^6/uL (3.5-5.4); RED CELL DISTRIBUTION WIDTH 15.2 % (11.6-16.5); WHITE BLOOD COUNT 6.9 X10^3/uL (3.6-10.0)
[2017-07-23 15:47] LABS: ALANINE AMINOTRANSFERASE 34 Units/L (12-78); ALBUMIN 3.4 g/dL (3.4-5.0); ALKALINE PHOSPHATASE 121 Units/L (46-116); ASPARTATE AMINO TRANSFERASE 27 Units/L (15-37); BLOOD UREA NITROGEN 10 mg/dL (7-18); CALCIUM 8.5 mg/dL (8.5-10.1); CARBON DIOXIDE 30.2 mmol/L (21-32); CHLORIDE 105 mmol/L (98-107); CREATININE 0.64 mg/dL (0.55-1.02); SODIUM 143 mmol/L (136-145); TOTAL PROTEIN 7.3 g/dL (6.4-8.2); eGFR BLACK RACES > 60 (>60); eGFR NON BLACK RACES > 60 (>60)
== END ==
LOC: LAB 15:00
PROVIDERS: ATTEND Nurse Practitioner Family
DX: Z01.818 Encounter for other preprocedural examination (principal); Z01.810 Encounter for preprocedural cardiovascular examination; S42.001D Fracture of unspecified part of right clavicle, subsequent encounter for fracture with routine healing; X58.XXXD Exposure to other specified factors, subsequent encounter; M25.511 Pain in right shoulder
CPT/HCPCS: 36415; 80053; 85025; 93005; 93010

== ENCOUNTER → 2017-08-25 | Outpatient (CLI) | payer OTHER ==
--- NOTE | 2017-08-25 12:29 | RAD ---
HISTORY: Status post fall Friday. Pain and edema. Study: Right forearm: Two views Comparison: None Findings: [id number] osteopenia is noted. Very minimal degenerative changes noted in the elbow joint pro per. There is at least higr-vi-[id number] degenerative change in the wrist joint. The shafts of the r adius and ulna appear to be intact. Mild vascular calcification is noted. IMPRESSION: 1. [id number] osteopenia. 2. Degenerative change in the right elbow and wrist as described above. 3. No acute bony abnormalities are identified. 4. Please see right wrist x-ray report from the same day. Reported By:
--- NOTE | 2017-08-25 12:39 | RAD ---
HISTORY: Fall with Study: 3 views of the right wrist. Comparison: None Findings: No definite displaced acute fractures. Should be noted that the patient is severely osteopenic which limits evaluation for fracture. The carpal bones appear well aligned. No significant soft tissue a bnormality. IMPRESSION: 1. Severe osteopenia which limits evaluation for nondisplaced fracture. Within those confines, no la rgely displaced fractures can be seen. Reported By:
== END ==
LOC: RAD 11:45
PROVIDERS: ATTEND Internal Medicine
DX: S69.91XA Unspecified injury of right wrist, hand and finger(s), initial encounter (principal); X58.XXXA Exposure to other specified factors, initial encounter; M85.88 Other specified disorders of bone density and structure, other site
CPT/HCPCS: 73090; 73100

== ENCOUNTER → 2017-09-09 | Outpatient (CLI) | payer OTHER ==
[2017-09-09 16:03] LABS: BASOPHILS # (AUTO) 0.1 X10^3/uL (0.0-0.1); BASOPHILS % (AUTO) 1.2 % (0.2-1.0); EOSINOPHILS # (AUTO) 0.2 x10^3/uL (0.0-0.2); EOSINOPHILS % (AUTO) 3.4 % (0.9-2.9); HEMATOCRIT 33.9 % (36.0-47.0); HEMOGLOBIN 11.8 g/dL (12.0-16.0); LYMPHOCYTES # (AUTO) 1.3 X10^3/uL (1.3-2.9); MEAN CORPUSCULAR HEMOGLOBIN 32.3 pg (27.0-34.0); MEAN CORPUSCULAR HGB CONC 34.7 g/dL (33.0-35.0); MEAN CORPUSCULAR VOLUME 93.1 fL (80.0-100.0); MEAN PLATELET VOLUME 7.9 fL (7.4-11.0); MONOCYTES # (AUTO) 0.6 x10^3/uL (0.3-0.8); MONOCYTES % (AUTO) 8.9 % (0.0-13.0); NEUTROPHILS # (AUTO) 4.4 x10^3/uL (2.2-4.8); NEUTROPHILS % (AUTO) 66.5 % (42.0-75.0); PLATELET COUNT 221 X10^3/uL (150.0-450.0); RED BLOOD COUNT 3.64 X10^6/uL (3.5-5.4); RED CELL DISTRIBUTION WIDTH 15.3 % (11.6-16.5); WHITE BLOOD COUNT 6.6 X10^3/uL (3.6-10.0)
[2017-09-09 16:11] LABS: ALANINE AMINOTRANSFERASE 46 Units/L (12-78); ALBUMIN 3.3 g/dL (3.4-5.0); ALKALINE PHOSPHATASE 105 Units/L (46-116); ASPARTATE AMINO TRANSFERASE 64 Units/L (15-37); BLOOD UREA NITROGEN 11 mg/dL (7-18); CALCIUM 8.4 mg/dL (8.5-10.1); CARBON DIOXIDE 28.6 mmol/L (21-32); CHLORIDE 107 mmol/L (98-107); CREATININE 0.62 mg/dL (0.55-1.02); SODIUM 141 mmol/L (136-145); TOTAL PROTEIN 7.1 g/dL (6.4-8.2); eGFR BLACK RACES > 60 (>60); eGFR NON BLACK RACES > 60 (>60)
== END ==
LOC: LAB 15:41
PROVIDERS: ATTEND Nurse Practitioner Family
DX: Z01.818 Encounter for other preprocedural examination (principal); J32.9 Chronic sinusitis, unspecified
CPT/HCPCS: 36415; 80053; 85025